=== PATIENT | male | born 1980 | race Caucasian/White ===

== ENCOUNTER 2017-05-13 12:12 | Emergency (ER) | payer MEDICAID ==
[~2017-05-13] VITALS: Ht 170.2 cm; Wt 90.5 kg
[2017-05-13 12:15] VITALS: Ht 170.2 cm; Wt 90.5 kg
--- NOTE | 2017-05-13 12:44 | ERD ---
ER Documentation Chief Complaint Date/Time DATE: 05/13/17 TIME: 12:42 Chief Complaint LEFT INDEX FINGER PAIN, INJURED YESTERDAY @ WORK HPI This is a 36-year-old male presenting to emergency department with left index finger pain after injury at work yesterday. Patient works in construction and states when he was lifting a heavy object his finger got caught underneath causing severe pain and entire nail is "coming off." No numbness or tingling. No loss of sensation. No limited mobility to left index finger. Patient did not take any medications. ROS All systems reviewed and are negative except as per history of present illness. Medications Home Meds Active Scripts Cephalexin* (Cephalexin*) 500 Mg Capsule, 500 MG PO Q6, #28 CAP Prov:GALO CRYSTAL NP 05/13/17 Bacitracin* (Bacitracin Oint (UD)*) 1 Applic Oint, 1 APPLIC TOP ONCE for 7 Days , PKT APPLY TO Prov:GALO CRYSTAL NP 05/13/17 Allergies Allergies: Coded Allergies: No Known Allergy (Unverified , 05/13/17) Physical Exam Vitals Vital Signs Date Time Temp Pulse Resp B/P Pulse Ox O2 Delivery O2 Flow Rate FiO2 05/13/17 12:15 98.2 79 20 135/82 95 Physical Exam Const: No acute distress, alert Head: Atraumatic Eyes: Normal Conjunctiva ENT: Normal External Ears, Nose and Mouth. Neck: Full range of motion..~ No meningismus. Resp: Clear to auscultation bilaterally Cardio: Regular rate and rhythm, no murmurs Abd: Soft, non tender, non distended. Normal bowel sounds Skin: No petechiae or rashes Back: No midline or flank tenderness Ext: No swelling. Left index finger nail is avulsed.Capillary refill less than 3 seconds. Sensation fully intact. Mobility to left second digit intact. No limited range of motion. Neur: Awake and alert Psych: Normal Mood and Affect Procedures/MDM [place] [id number] Radiology Main Line: [phone] DIAGNOSTIC IMAGING REPORT Patient: NATHAN FAUSTIN : 1980 Age: 36 Sex: M MR #: [id number] DOS: 05/13/17 1244 Ordering MD: GALO PEÑA NP Location: [facility] Room/Bed: PROCEDURE: XR Finger. CLINICAL INDICATION: Left second digit pain. TECHNIQUE: Two views of the left index finger are available for review. COMPARISON: None available FINDINGS: There is no acute fracture or dislocation. There is mild soft tissue swelling around the second digit. Joint spaces are maintained. There are no erosive changes. No radiopaque foreign body is visualized. RPTAT: ZZ IMPRESSION: 1. No acute bony abnormality. 2. Soft tissue swelling around the second digit. MDM: This is a 36-year-old male presenting to emergency department with left index finger pain after injury at work yesterday. On physical exam patient has avulsed left fingernail. No laceration or active bleeding. No bruising or swelling. X-ray left index finger reviewed by radiologist as no acute bony abnormality. Soft tissue swelling around the second digit.Sensation fully intact to left index finger. Capillary refill less than 3 seconds. Vital signs are stable. Patient remains alert and oriented throughout ED visit. Low suspicion for acute dislocation or fracture. Patient is appropriate for outpatient management and will be given prescription for Keflex and bacitracin ointment. Instructed patient to return to ED in 2 days for wound check. Follow-up with primary care provider in the next 2-3 days for reassessment and additional management. Return to ED for any high fever, chest pain, difficulty breathing, shortness breath, wheezing, vomiting, diarrhea, abdominal pain or any new or worsening symptoms. Patient verbalizes understanding. All questions answered at discharge. Disclaimer: Inadvertent spelling and grammatical errors are likely due to EHR/ dictation software use and do not reflect on the overall quality of patient care. Also, please note that the electronic time recorded on this note does not necessarily reflect the actual time of the patient encounter. Departure Diagnosis: Primary Impression: Finger injury Condition: Stable GALO CRYSTAL NP May 13, 2017 12:44
--- NOTE | 2017-05-13 15:01 | RADRPT ---
PROCEDURE: XR Finger. CLINICAL INDICATION: Left second digit pain. TECHNIQUE: Two views of the left index finger are available for review. COMPARISON: None available FINDINGS: There is no acute fracture or dislocation. There is mild soft tissue swelling around the second digi t. Joint spaces are maintained. There are no erosive changes. No radiopaque foreign body is visualiz ed. RPTAT: ZZ IMPRESSION: 1. No acute bony abnormality. 2. Soft tissue swelling around the second digit. .Nichole Ring MD, MD Date Time Electronically viewed and signed by .Nichole Ring MD, MD on 05/13/2017 15:00 .T/
[2017-05-13] MEDS ORDERED: BACITUD TOP (15:05)
[2017-05-13] MEDS ORDERED: CEPH500C PO (15:05)
== END 2017-05-13 15:30 | disposition home or self-care (01) ==
LOC: FTE 12:12
DX: S69.92XA Unspecified injury of left wrist, hand and finger(s), initial encounter (principal); W23.1XXA Caught, crushed, jammed, or pinched between stationary objects, initial encounter; Y92.69 Other specified industrial and construction area as the place of occurrence of the external cause
CPT/HCPCS: 73140; Z7502